=== PATIENT | female | born 1990 | race Caucasian/White ===

== ENCOUNTER 2017-01-27 15:45 | Emergency (ER) | payer OTHER ==
--- NOTE | 2017-01-27 16:32 | EDPHY ---
H & P Stated Complaint: bulging around umbilicus Time Seen by Provider: 01/27/17 16:00 HPI/ROS: This patient was never seen by myself in the emergency department. Source: Patient Exam Limitations: No limitations - Personal History LMP (Females 10-55): 8-14 Days Ago Current Tetanus/Diphtheria Vaccine: Yes Current Tetanus Diphtheria and Acellular Pertussis (TDAP): Yes - Medical/Surgical History Hx Asthma: No Hx Chronic Respiratory Disease: No Hx Diabetes: No Hx Cardiac Disease: No Hx Renal Disease: No Hx Cirrhosis: No Hx Alcoholism: No Hx HIV/AIDS: No Hx Splenectomy or Spleen Trauma: No - Social History Smoking Status: Never smoked Constitutional: Initial Vital Signs Temperature (C) 37.1 C 01/27/17 15:51 Heart Rate 100 01/27/17 15:51 Respiratory Rate 16 01/27/17 15:51 Blood Pressure 141/87 H 01/27/17 15:51 O2 Sat (%) 98 01/27/17 15:51 O2 Delivery Mode Room Air Allergies/Adverse Reactions: cephalexin [From Keflex] Allergy (Verified 01/27/17 15:54) Departure - Departure Disposition: Home, Routine, Self-Care Clinical Impression: Umbilical hernia Condition: Good Instructions: Umbilical Hernia (ED) Additional Instructions: Heating pad to your abdomen as needed for comfort. Follow up with the surgeon. Call to schedule your appointment. Return to the ED for increased pain, increased size, any other questions or concerns. Referrals: Jesus Villarreal MD [Medical Doctor] - As per Instructions (General surgeon)
--- NOTE | 2017-01-27 16:44 | EDPHY ---
H & P Stated Complaint: bulging around umbilicus Time Seen by Provider: 01/27/17 16:00 HPI/ROS: CHIEF COMPLAINT: abdominal bulge HISTORY OF PRESENT ILLNESS: 26-year-old female presents emergency department with her mother complaining of intermittent periumbilical abdominal pain with a intermittent bulge x2 years. Patient states 2 weeks ago she was doing a lot of heavy lifting and has had an increased bulge with increased pain. She has noticed a discoloration, mildly purple. Patient reports it feels better after it is pushed on. She denies nausea, vomiting or diarrhea. She states she feels mildly bloated as she feels constipated and has not had a bowel movement for a few days. No fevers or chills. No urinary symptoms. Patient reports she has a known umbilical hernia as a baby that "went away". REVIEW OF SYSTEMS: A comprehensive 10 point review of systems is otherwise negative aside from elements mentioned in the history of present illness. - Personal History LMP (Females 10-55): 8-14 Days Ago Current Tetanus/Diphtheria Vaccine: Yes Current Tetanus Diphtheria and Acellular Pertussis (TDAP): Yes - Medical/Surgical History Hx Asthma: No Hx Chronic Respiratory Disease: No Hx Diabetes: No Hx Cardiac Disease: No Hx Renal Disease: No Hx Cirrhosis: No Hx Alcoholism: No Hx HIV/AIDS: No Hx Splenectomy or Spleen Trauma: No - Social History Smoking Status: Never smoked - Physical Exam Exam: Physical Exam Gen: Alert and Oriented, NAD HEENT: PERRL, moist mucous membranes NECK: no meningismus CV: regular rate and regular rhythm PULM: CTAB, no wheezes ABDOMEN: soft, non tender to palpation, small 3 mm umbilical mass that is reducible. Slightly purple in color, mildly tender with reduction, BS present BACK: No CVA tenderness NEURO: Neurologically grossly intact EXTREMITIES: normal appearing SKIN: no rash or break in skin on exposed skin PSYCH: answers questions appropriately. Constitutional: Initial Vital Signs Temperature (C) 37.1 C 01/27/17 15:51 Heart Rate 100 01/27/17 15:51 Respiratory Rate 16 01/27/17 15:51 Blood Pressure 141/87 H 01/27/17 15:51 O2 Sat (%) 98 01/27/17 15:51 O2 Delivery Mode Room Air Allergies/Adverse Reactions: cephalexin [From Keflex] Allergy (Verified 01/27/17 15:54) Medical Decision Making ED Course/Re-evaluation: 26-year-old female presents with a a reducible umbilical hernia. No evidence of incarcerated hernia. Patient will be given General surgery for follow-up. She is given return precautions for any worsening symptoms or concerns. Patient is comfortable with this plan. Differential Diagnosis: Diagnosis considered but not limited to umbilical hernia, incarcerated hernia, abscess Departure - Departure Disposition: Home, Routine, Self-Care Clinical Impression: Umbilical hernia Qualifiers: Obstruction and gangrene presence: without obstruction or gangrene Qualified Code(s): K42.9 - Umbilical hernia without obstruction or gangrene Condition: Good Instructions: Umbilical Hernia (ED) Additional Instructions: Heating pad to your abdomen as needed for comfort. Follow up with the surgeon. Call to schedule your appointment. Return to the ED for increased pain, increased size, any other questions or concerns. Referrals: Jesus Villarreal MD [Medical Doctor] - As per Instructions (General surgeon)
[2017-01-27 16:54] VITALS: RESP 20
[2017-01-27 16:57] VITALS: BP 127/86; PULSE 72; TEMP 98.8; O2SAT 97
== END 2017-01-27 16:55 | disposition home or self-care (01) ==
DX: K42.9 Umbilical hernia without obstruction or gangrene (principal)

== ENCOUNTER 2017-07-02 19:30 | Observation (INO) | payer OTHER ==
[2017-07-02] MEDS ORDERED: NS 1,000 ML IV ONE (19:43)
[2017-07-02] MEDS ORDERED: ONDANSETRON 4 MG/2 ML VIAL IVP ONE (19:43)
[2017-07-02] MEDS ORDERED: KETOROLAC 15 MG/1 ML SDV IVP ONE ×2 (19:56→20:50)
[2017-07-02 19:57] LABS: PLATELET COUNT 280 10^3/uL (150-400)
[2017-07-02] MEDS ORDERED: IOPAMIDOL (ISOVUE-300) 100 ML BTL ONE (20:00)
--- NOTE | 2017-07-02 20:03 | EDPHY ---
H & P Stated Complaint: 7/10 lower abd pain with N/V since Friday night. Time Seen by Provider: 07/02/17 19:43 HPI/ROS: This patient reports abdominal pain and vomiting. She explains that 48 hr prior to arrival she developed mid belly pain that was achy in nature associated with nausea. She thought she had the stomach flu but over the last 24 hr the pain migrated to the right lower belly may came sharp in nature, 7/10 intensity. She has never had this abdominal pain before. The pain worsens with bumps on the road while driving in the car. She took ibuprofen 400 mg at 3:00 p.m. with partial relief. No other exacerbating factors. She is uncertain if she has had fevers because she has been taking ibuprofen quite regularly every 6-8 hours since the onset of the pain. ROS: Constitutional: no significant fatigue HEENT: No URI symptoms currently. Pulmonary: Had bronchitis last week improved with an inhaler. No significant coughing currently. No shortness of breath. Cardiovascular: She does feel mildly lightheaded while on her feet today. No chest pain. GI: She reports her last meal was bananas and juice at 2:00 p.m. today. Her nausea has currently resolved. She reports feeling slightly bloated. She feels slightly constipated but did have a normal bowel movement today. : Last menstrual period was normal timing last week. No dysuria or frequency. No flank pain. No vaginal discharge. Endocrine: No complaints Derm: No complaints Completely symptoms otherwise negative. Source: Patient Exam Limitations: No limitations - Personal History LMP (Females 10-55): 1-7 Days Ago Current Tetanus Diphtheria and Acellular Pertussis (TDAP): Yes - Medical/Surgical History Hx Asthma: No Hx Chronic Respiratory Disease: No Hx Diabetes: No Hx Cardiac Disease: No Hx Renal Disease: No Hx Cirrhosis: No Hx Alcoholism: No Hx HIV/AIDS: No Hx Splenectomy or Spleen Trauma: No Other PMH: R ovarian cyst, umbilical hernia - Family History Significant Family History: No pertinent family hx - Social History Smoking Status: Never smoked Alcohol Use: Occasionally Drug Use: None - Physical Exam Exam: Pleasant 27-year-old female pulse of 109. Other vitals are normal General Appearance: Alert, no distress. Eyes: Pupils equal and round no pallor or injection. ENT, Mouth: Mucous membranes moist. Respiratory: There are no retractions, lungs are clear to auscultation. Cardiovascular: Tachycardia with no murmur gallop or rub Gastrointestinal: Normoactive, soft, positive right lower quadrant rebound tenderness. Positive Rovsing's. Small reducible umbilical hernia no upper belly tenderness. No organomegaly. Back: No CVA tenderness Neurological: GCS 15 Skin: Warm and dry, no rashes. Musculoskeletal: Neck is supple nontender. Extremities are symmetrical, full range of motion. Psychiatric: Mood and affect normal DIFFERENTIAL DIAGNOSIS: After history and physical exam differential diagnosis was considered forappendicitis, diverticulitis, mesenteric adenitis, ovarian cyst, ovarian torsion, tubo-ovarian abscess, UTI, constipation Constitutional: Initial Vital Signs Temperature (C) 37 C 07/02/17 19:41 Heart Rate 109 H 07/02/17 19:41 Respiratory Rate 18 07/02/17 19:41 Blood Pressure 137/97 H 07/02/17 19:41 O2 Sat (%) 92 07/02/17 19:41 O2 Delivery Mode Room Air Allergies/Adverse Reactions: cephalexin [From Keflex] Allergy (Verified 07/02/17 19:40) Home Medications: Medication Instructions Recorded Control Pill 07/02/17 Hydrocodone/APAP 5/325 [[place] 1 tab PO Q4HRS PRN #20 tab 07/04/17 5/325 (*)] Ibuprofen [Motrin (*)] 600 mg PO Q6 PRN #30 tab 07/04/17 Ondansetron Odt [Zofran Odt 4 mg 4 mg PO ONCE #10 tab 07/04/17 (*)] Sennosides/Docusate Sodium 1 tab PO BID #30 tab 07/04/17 [Senokot-S] Medical Decision Making - Diagnostics Imaging Results: CT abdomen pelvis I discussed with Dr. De Martinez-radiologist to is unable to visualize the appendix-bladder is very full. No obvious inflammatory change in the right lower quadrant. Small ovarian cysts bilaterally are present. I also reviewed the CT myself. Imaging: Discussed imaging studies w/ order desk caller Radiologist ED Course/Re-evaluation: IV normal saline bolus Toradol IV without improvement in her pain. On repeat examination at 9:45 p.m. the patient still has significant right lower quadrant tenderness with mild rebound. Morphine 4 mg IV Patient kept NPO Discussed the case with our on-call surgeon-Dr. Hand who recommends sending the patient over to preop so that he can exam her. He also reviewed the CT Discussion: Patient here with right lower quadrant pain tenderness leukocytosis CT did not visualize her appendix. We ruled out , rule out UTI. Given her ongoing pain and tenderness concerned about potential early appendicitis since patient and thinks that she warrants surgical consult impossible object admission. Other possibilities for her symptoms include mesenteric adenitis or enteritis, although without any loose stools or diarrhea enteritis seems unlikely. - Data Points Laboratory Results: Laboratory Results 07/02/17 07:50 07/02/17 07:50 Medications Given: Discontinued Medications Hydrocodone Bitart/Acetaminophen ([place] 5/325) 1 tab PO Q4HRS PRN PRN Reason: Pain, Moderate Able to Take PO Stop: 07/13/17 07:25 Last Admin: 07/04/17 11:16 Dose: 1 tab Bupivacaine HCl (Sensorcaine 0.25% Sdv) Confirm Administered Dose 30 ml .ROUTE .STK-MED ONE Stop: 07/03/17 04:36 Last Admin: 07/03/17 06:02 Dose: 30 ml Bupivacaine HCl (Sensorcaine 0.25% Sdv) Confirm Administered Dose 30 ml .ROUTE .STK-MED ONE Stop: 07/03/17 04:36 Last Admin: 07/03/17 06:02 Dose: Not Given Fentanyl (Sublimaze) 25 - 100 mcg IVP Q5M PRN PRN Reason: PACU, IMMEDIATE Pain control Stop: 07/03/17 06:02 Last Admin: 07/03/17 07:07 Dose: 50 mcg Hydromorphone HCl (Dilaudid) 0.2 mg IVP Q2HRS PRN PRN Reason: Pain, Severe Unable to Take PO Stop: 07/13/17 02:42 Last Admin: 07/03/17 12:21 Dose: 0.2 mg Sodium Chloride (Ns) 1,000 mls @ 0 mls/hr IV EDNOW ONE; Wide Open PRN Reason: Protocol Stop: 07/02/17 19:44 Last Admin: 07/02/17 19:55 Dose: 1,000 mls Lactated Ringer's (Lr) 1,000 mls @ 0 mls/hr IV ONCE ONE PRN Reason: KVO Stop: 07/02/17 23:03 Last Admin: 07/03/17 05:02 Dose: Not Given Lactated Ringer's (Lr) 1,000 mls @ 150 mls/hr IV CONT LEILANI Stop: 07/04/17 00:29 Last Admin: 07/03/17 01:40 Dose: 1,000 mls Piperacillin/Tazobactam/Dextrose (Zosyn 3.375 Gm (Premix)) 50 mls @ 100 mls/hr IV ONCE ONE PRN Reason: Protocol Stop: 07/03/17 04:58 Last Admin: 07/03/17 05:12 Dose: 50 mls Piperacillin/Tazobactam/Dextrose (Zosyn 3.375 Gm (Premix)) 50 mls @ 100 mls/hr IV Q6HRS LEILANI PRN Reason: Protocol Stop: 07/04/17 00:29 Last Admin: 07/04/17 00:15 Dose: 50 mls Ibuprofen (Motrin) 600 mg PO Q6 PRN PRN Reason: Pain, Mild Able to Take PO Stop: 12/30/17 14:31 Last Admin: 07/04/17 11:15 Dose: 600 mg Ketorolac Tromethamine (Toradol) 15 mg IVP EDNOW ONE Stop: 07/02/17 19:57 Last Admin: 07/02/17 20:00 Dose: 15 mg Ketorolac Tromethamine (Toradol) 15 mg IVP EDNOW ONE Stop: 07/02/17 20:51 Last Admin: 07/02/17 20:55 Dose: 15 mg Morphine Sulfate (Morphine) 4 mg IVP EDNOW ONE Stop: 07/02/17 21:47 Last Admin: 07/02/17 21:53 Dose: 4 mg Ondansetron HCl (Zofran) 4 mg IVP EDNOW ONE Stop: 07/02/17 19:44 Last Admin: 07/02/17 19:56 Dose: Not Given Ondansetron HCl (Zofran) 4 mg IVP Q4HRS PRN PRN Reason: Nausea/Vomiting, Can't Take PO Stop: 12/30/17 00:43 Last Admin: 07/04/17 00:15 Dose: 4 mg Ondansetron HCl (Zofran Odt) 4 mg PO ONCE ONE Stop: 07/04/17 07:52 Last Admin: 07/04/17 11:19 Dose: 4 mg Promethazine HCl (Phenergan) 6.25 mg IVP Q6HRS PRN PRN Reason: Nausea/Vomiting, Can't Take PO Stop: 12/30/17 00:43 Last Admin: 07/03/17 08:35 Dose: 6.25 mg Senna/Docusate Sodium (Senokot-S) 1 tab PO BID LEILANI Stop: 12/30/17 08:59 Last Admin: 07/04/17 11:16 Dose: 1 tab Departure - Departure Disposition: [facility] Inpatient Acute Clinical Impression: Right lower quadrant abdominal pain Leukocytosis Qualifiers: Leukocytosis type: unspecified Qualified Code(s): D72.829 - Elevated white blood cell count, unspecified Condition: Good
[2017-07-02] MEDS ORDERED: KETOROLAC 15 MG/1 ML SDV ONE (20:51)
[2017-07-02] MEDS ORDERED: LR 1,000 ML IV ONE (23:02)
--- NOTE | 2017-07-03 00:02 | PDANEPAE ---
ANE Past Medical History - Cardiovascular History Hx Hypertension: No Hx Arrhythmias: No - Pulmonary History Hx Asthma/Reactive Airway Disease: Yes Hx Oxygen in Use at Home: No Hx Sleep Apnea: No - Endocrine History Hx Diabetes: No ANE Review of Systems Review of systems is: negative Review of Systems: - Exercise capacity METS (RN): 4 METS ANE Patient History - Allergies Allergies/Adverse Reactions: cephalexin [From Keflex] Allergy (Verified 07/02/17 19:40) - Home Medications Home Medications: Control Pill 07/02/17 [Last Taken Unknown] Ibuprofen [Advil] 200 mg PO 07/02/17 [Last Taken 07/02/17 15:00] - NPO status NPO Since - Liquids (Date): 07/02/17 NPO Since - Liquids (Time): 18:00 NPO Since - Solids (Date): 07/02/17 NPO Since - Solids (Time): 14:00 - Smoking Hx Smoking Status: Never smoked - Alcohol Use Alcohol Use: Occasionally ANE Labs/Vital Signs - Labs Result Diagrams: 07/02/17 07:50 07/02/17 07:50 - Vital Signs Blood Pressure: 129/87 Heart Rate: 114 Respiratory Rate: 18 O2 Sat (%): 98 Height: 170.18 cm Weight: 54.431 kg ANE Physical Exam - Airway Neck exam: FROM Mallampati Score: Class 2 - Pulmonary Pulmonary: clear to auscultation - Cardiovascular Cardiovascular: regular rate and rhythym - ASA Status ASA Status: I, E ANE Anesthesia Plan Anesthesia Plan: general endotracheal anesthesia
[2017-07-03] MEDS ORDERED: LR 1,000 ML IV SCH (00:30)
--- NOTE | 2017-07-03 00:43 | PDCONSULT ---
Manager [employer]ostatistics Note: #[id number] Full Surgical Consult Dictated S MD Yazan, FACS
[2017-07-03] MEDS ORDERED: PROMETHAZINE HCL 25 MG/ML INJ IVP PRN ×2 (00:44→05:02)
--- NOTE | 2017-07-03 01:25 | GCON ---
[f rep st] CONSULTATION ADMISSION NOTE/CONSULT DATE OF CONSULTATION: 07/02/2017 REFERRING PHYSICIAN: Garfield Ferrer MD CHIEF COMPLAINT: Abdominal pain. HISTORY OF PRESENT ILLNESS: The patient is a 27-year-old female, who presented to [facility] in [place] for evaluation of abdominal pain. She was seen and assessed by Dr. Garfield Smith son and referred to [facility] for a possible appendicitis. The patient reports the pain to have started 2 days prior when she awoke. She went to work. The leonor n became worse. After initially starting in the upper mid abdomen, moved into her lower abdomen, bot h right and left sides but worse on the right. The patient developed nausea and had 1 episode of javan sis on the first day of her symptoms. Took ibuprofen to treat her symptoms. On the day of admission , the patient reported the pain to persist and be much the same associated with what she described as a crampy pain similar to menstrual cramps. Although the pain is persistent, she feels better than s he did on the first day of her symptoms. The patient has not been vomiting today. Denies any diarrh ea. She last ate approximately 9 hours prior and is currently hungry. She denies any fever. The patient was treated 1 week prior for presumed bronchitis with an inhaler, which she used for 2 da ys and then discontinued because it gave her a headache. She was seen 3 months ago at [facility] for spontaneous bleeding from her umbilicus and was treated with antibiotics after a CAT scan was performed. At that time, she was noted to have ova placido cysts. Had no prior history or knowledge of them. She takes no. MEDICATIONS: Oral contraceptives, ibuprofen and a bronchodilator (? Flovent). ALLERGIES: Cephalexin. HABITS: She is a nonsmoker. Denies significant alcohol use. PAST SURGICAL HISTORY: No prior abdominal surgeries. SOCIAL HISTORY: The patient is accompanied by her significant other and her mother. FAMILY HISTORY: Noncontributory. REVIEW OF SYSTEMS: The patient reports a chronic cough for 2 months that resolved last week after st arting inhaler. She had no sputum, hemoptysis. Denies chest pain, shortness of breath. She has had no hematemesis, melena, hematochezia, diarrhea or anorexia. Last menstrual period was 1 week prior and was described as normal. The patient denies history of prior abdominal pain of this intensity. She did have spontaneous bleeding from her umbilicus approximately 3 months ago, which resolved after a course of antibiotics. Records of this episode are not available currently. PHYSICAL EXAMINATION: VITAL SIGNS: Blood pressure 129/87. Heart rate 114. Respiratory rate 18. T emperature is 36.8. GENERAL: Patient is a pleasant, slender young woman who appears in mild distres s. NECK: Supple without adenopathy. HEENT: There are no scleral icterus. LUNGS: Clear to auscul tation. HEART: Regular in rate and rhythm without murmurs. ABDOMEN: Scaphoid. Bowel sounds are n ormoactive and present. The patient has a soft upper epigastric bruit. She has tenderness to percus sergei in both the right and left lower quadrant as well as in the suprapubic midline. She has diffuse mild tenderness to palpation. No guarding or rebound. Rovsing sign is negative. There is no back, flank or CVA tenderness. The patient has a discoloration at the base of her umbilicus in the skin t hat appears postinflammatory. There is a small non-incarcerated umbilical hernia present slightly ab ove this. There is no focal tenderness at McBurney point. There is no inguinal mass, adenopathy or hernia. PELVIC: Not performed at this time. EXTREMITIES: The patient has a negative psoas and neg ative obturator sign. IMAGING: The patient's CT scan was reviewed and shows a dilated bladder and bilateral ovarian cysts. Appendix was not visualized. There are several loops of small bowel that contain fluid which is no nspecific. There is no free air. No pathologic calcifications. A small umbilical hernia is confirm ed. LABORATORY STUDIES: WBC is 14.3, hemoglobin 14.9, hematocrit 44.6, platelets are 280,000. 83% neutr ophils on differential. Sodium is 139, potassium 4.0, chloride 98, bicarb 23, BUN 7, creatinine 0.7, glucose 108. Calcium is 9.8. Beta HCG is negative. Urinalysis is negative with a specific gravity of less than 1.005. IMPRESSION: 1. Abdominal pain of unclear etiology. Certainly, appendicitis is in the differential. Given the h istory and clinical exam as well as negative appendix, the odds of appendicitis are quite low. She d oes have leukocytosis, which is worrisome for a sign of infection. 2. Bilateral ovarian cysts. Possible contributing etiology to the patient's abdominal pain though t here is no secondary evidence of cyst rupture or bleeding based on CT. 3. History of spontaneous bleeding from the umbilicus, suspicious for patent urachus. No evidence o f urachal cyst on CT. 4. Recent bronchitis. Treated with inhaler. RECOMMENDATIONS: I discussed the findings with the patient, her boyfriend and her mother, and the op tions of management including immediate laparoscopic or open appendectomy versus additional testing w ith abdominal and pelvic ultrasound and COMMUNITY RECREATION PROGRAMMER consultation. As the patient's symptoms have improved si nce yesterday, I believe it is safe to take the time to obtain additional imaging and get a second op inion. I discussed the case with Dr. Chasity De La Garza, who will consult on her care. The patient will b e admitted for observation, serial exams and be kept n.p.o. for the time being. Intravenous fluids t o be administered. Serial exams to be performed. /[id number]/MODL
[2017-07-03] MEDS ORDERED: ONDANSETRON 4 MG/2 ML VIAL ONE ×3 (01:32→07:06)
[2017-07-03] MEDS: ONDANSETRON 4 MG/2 ML VIAL IVP PRN ×4 (01:40→16:31)
--- NOTE | 2017-07-03 02:40 | SOAPPROG ---
Downtime Inpatient MD Late Entry SOAP Note: Kelly feels about the same with crampy lower abd pain. She reports a CALI with morphine and required zofran for nausea. She denies emesis. Her abdominal exam reveals normal bowel sounds, she has diffuse mild percussion tenderness and tenderness in both lower quadrants more in the LLQ than RLQ. There is no guarding or rebound. repeat cbc, pelvic and abdominal ultrasound are pending. Imp: abdominal pain, clinically not likely appendicitis bilateral ovarian cysts on CT ? ruptured ovarian cyst-OPERATIONS ACCOUNTANT consult pending prior drainage from umbilicus clinically suspicious for patent urachus Rec: repeat cbc, pelvic and abdominal ultrasound continue NPO for now/serial exam OPERATIONS ACCOUNTANT consult-discussed with Dr. Frederic Hand MD, FACS
[2017-07-03 02:47] LABS: PLATELET COUNT 222 10^3/uL (150-400)
[2017-07-03] MEDS ORDERED: PIPERACILLIN/TAZO 3.375 GM/DEX 50 ML IV ONE (04:29)
[2017-07-03] MEDS ORDERED: BUPIVACAINE 0.25% 30 ML SDV ONE ×2 (04:35)
[2017-07-03] MEDS ORDERED: ALBUTEROL 3 ML DEYVIAL IH PRN (05:02)
[2017-07-03] MEDS ORDERED: NALOXONE HCL 0.4 MG/ML INJ IVP PRN (05:02)
[2017-07-03] MEDS ORDERED: ONDANSETRON 4 MG/2 ML VIAL IVP PRN (05:02)
[2017-07-03] MEDS ORDERED: fentaNYL 100 MCG/2 ML INJ IVP PRN (05:02)
[2017-07-03] MEDS ORDERED: HYDROmorphONE/DILAUDID 1 MG/ML INJ IVP PRN (05:02)
--- NOTE | 2017-07-03 05:04 | PDANEPAE ---
ANE History of Present Illness Lap Appendectomy ANE Past Medical History - Pulmonary History Hx Oxygen in Use at Home: No Hx Sleep Apnea: No - Endocrine History Hx Diabetes: No ANE Review of Systems Review of Systems: ANE Patient History - Allergies Allergies/Adverse Reactions: cephalexin [From Keflex] Allergy (Verified 07/02/17 19:40) - Home Medications Home Medications: Control Pill 07/02/17 [Last Taken Unknown] Ibuprofen [Advil] 200 mg PO 07/02/17 [Last Taken 07/02/17 15:00] - NPO status NPO Since - Liquids (Date): 07/02/17 NPO Since - Liquids (Time): 18:00 NPO Since - Solids (Date): 07/02/17 NPO Since - Solids (Time): 14:00 - Smoking Hx Smoking Status: Never smoked - Alcohol Use Alcohol Use: Occasionally ANE Labs/Vital Signs - Labs Result Diagrams: 07/03/17 02:35 07/02/17 07:50 - Vital Signs Blood Pressure: 112/74 Heart Rate: 104 Respiratory Rate: 16 O2 Sat (%): 95 Height: 170.18 cm Weight: 54.431 kg ANE Physical Exam - Airway Neck exam: FROM Mallampati Score: Class 2 Mouth exam: normal dental/mouth exam - Pulmonary Pulmonary: clear to auscultation - Cardiovascular Cardiovascular: regular rate and rhythym - ASA Status ASA Status: I, E ANE Anesthesia Plan Anesthesia Plan: general endotracheal anesthesia
[2017-07-03] MEDS ORDERED: fentaNYL 100 MCG/2 ML INJ ONE ×2 (05:12→07:01)
[2017-07-03] MEDS ORDERED: LIDOCAINE 2% 5 ML SDV ONE (05:12)
[2017-07-03] MEDS ORDERED: PROPOFOL 200 MG/20 ML VIAL ONE ×2 (05:12→06:13)
[2017-07-03] MEDS ORDERED: ROCURONIUM 50 MG/5 ML VIAL ONE (05:13)
[2017-07-03] MEDS ORDERED: DEXAMETHASONE 4 MG/ML VIAL ONE ×2 (05:18)
[2017-07-03] MEDS ORDERED: RANITIDINE 50 MG/2 ML VIAL ONE (05:18)
[2017-07-03] MEDS ORDERED: SUGAMMADEX SODIUM 200 MG/2 ML VIAL IVP ONE (06:01)
--- NOTE | 2017-07-03 07:17 | POSTOPPROG ---
Post Op Note Date of Operation: 07/03/17 Surgeon: Micha Hand (, FACS) Anesthesiologist: Van Jo DO Anesthesia: GET(General Endotracheal) Pre-op Diagnosis: appendicitis + umbilical hernia Post-op Diagnosis: same + endometriosis Procedure: lap appendectomy/excision endometriosis umbilical/repair hernia Inf/Abcess present in the surg proc area at time of surgery?: Yes Depth: Organ Space Specimen(s): umbilical skin and hernia sac appendix
--- NOTE | 2017-07-03 07:39 | POSTANESTH ---
Post Anesthetic Evaluation Cardiovascular Status: Normal, Stable Respiratory Status: Normal, Stable Level of Consciousness/Mental Status: Can Participate in Eval Pain Control: Adequate, Prn Tx Ordered Nausea/Vomiting Control: Adequate, Prn Tx Ordered Complications Possibly Related to Anesthesia: None Noted
--- NOTE | 2017-07-03 08:02 | GOP ---
[f rep st] OPERATIVE REPORT DATE OF OPERATION: 07/03/2017 SURGEON: Micha Hand MD ANESTHESIOLOGIST: Van Jo D.O. PREOPERATIVE DIAGNOSIS: 1. Suspected appendicitis. 2. Umbilical hernia. 3. Bilateral ovarian cysts. POSTOPERATIVE DIAGNOSIS: 1. Acute appendicitis. 2. Endometriosis of the umbilicus. 3. Bilateral ovarian cysts and pelvic peritoneal endometriosis. 4. Umbilical hernia. PROCEDURE PERFORMED: 1. Laparoscopic appendectomy. 2. Excision of endometriosis including umbilical skin and umbilical hernia sac. 3. Umbilical hernia repair. FINDINGS: Black discoloration of the skin at the base of the umbilicus with history of prior bloody drainage. Subcutaneous infiltration with what appeared to be endometriosis. Permanent section pendi ng. A small umbilical hernia. Additional endometriosis identified in the left pelvic sidewall and l eft ovary. Bilateral ovarian cysts. ESTIMATED BLOOD LOSS: 10 cc. DESCRIPTION OF PROCEDURE: After informed consent was obtained, the patient was brought to the operat ing room and placed under general anesthesia. The abdomen was prepped and draped in usual fashion. Before proceeding, a time-out and identification of the patient was performed. The patient had an area of discoloration at the base of her umbilicus with irregular skin. This was infiltrated with 0.25% Marcaine and excised with a #15 scalpel blade, creating an approximately 8 mm defect at the base of the umbilicus. This tissue contained black dark nodular areas in the sub-dermi s and anterior fascia. There was an underlying umbilical hernia. All the involved tissue was excise d down to the fascial defect. The Veress needle was introduced into the peritoneal cavity via the um bilical hernial defect and a pneumoperitoneum was established with CO2 gas to a pressure of 15 mmHg. A 0-degree scope was introduced and the peritoneal cavity was visualized. An additional 5 mm port w as placed in the suprapubic position. This was used to introduce an atraumatic grasping forceps. Th e appendix was identified lying posterior to the right ovary and right salpinx. A 12 mm port was the n placed in the left lower quadrant under direct visualization. This allowed the appendix to be gras ped and dissected away from the surrounding structures. The mesoappendix was taken down with the Ibrahima gavi scalpel, and the appendix was from the cecum with a single firing of the TRIXIE stapler. The appendix was then retrieved through the left lower quadrant port site using an Endopouch. Hemo stasis appeared secure. The left lower quadrant fascial defect was repaired with a transfascial clos ure needle and 0 Vicryl suture. Inspection of the pelvis was performed. Both ovaries were visualize d, noted to have benign-appearing follicular cysts and there were 2 foci of endometriosis; one on the pelvic sidewall on the left near the salpinx and the other at the base of the ovary. These were not disturbed. The pneumoperitoneum was then evacuated. All ports were removed. The umbilical fascial defect was repaired with interrupted 0 Vicryl sutures. Subcutaneous tissues were approximated with 3-0 Monocryl suture and the skin was closed with 4-0 Monocryl suture in a subcuticular fashion. Topi lien Dermabond was applied. The patient was returned to the recovery room in satisfactory condition. Needle, sponge, and instrument counts were correct. COMPLICATIONS: None. /[id number]/MODL
[2017-07-03] MEDS: HYDROmorphONE/DILAUDID 1 MG/ML INJ IVP PRN ×2 (08:23→12:21)
[2017-07-03] MEDS: PIPERACILLIN/TAZO 3.375 GM/DEX 50 ML IV SCH ×2 (11:22→17:54)
[2017-07-03] MEDS: SENNOSIDES/DOCUSATE SODIUM TAB PO SCH ×2 (14:47→20:45)
[2017-07-03] MEDS: IBUPROFEN 600 MG TAB PO PRN ×2 (14:48→20:43)
[2017-07-03] MEDS: HYDROCODONE/APAP 5/325 TAB PO PRN (16:30)
[2017-07-04] MEDS: HYDROCODONE/APAP 5/325 TAB PO PRN ×2 (00:15→11:16)
[2017-07-04] MEDS: PIPERACILLIN/TAZO 3.375 GM/DEX 50 ML IV SCH (00:15)
[2017-07-04] MEDS: ONDANSETRON 4 MG/2 ML VIAL IVP PRN (00:15)
[2017-07-04] MEDS: IBUPROFEN 600 MG TAB PO PRN ×2 (05:05→11:15)
[2017-07-04 05:36] VITALS: O2SAT 96
[2017-07-04] MEDS ORDERED: ONDANSETRON DISINTEGRATING 4 MG TAB PO ONE (07:51)
--- NOTE | 2017-07-04 08:13 | PDDCSUM ---
Discharge Summary Discharge Summary: DOA:07/02/17 DOD: 07/04/17 Proedures: 07/03/17 lap appendectomy, excision of umbilical endometriosis, repair of umbilical hernia Course: Kelly presented to the [facility] late evening on the for abdominal pain and was transferred to [facility] for surgical consultation. Her CT abd was neg for appendicitis and she had an atypical history and exam. An abd ultrasond showed the appendix to be enlarged and her wbc remained elevated at 14K with a left shift. She had a history of spontaneous umbilical bleeding 3 months before and black discoloration of the inferior umbilical skin. She received Zosyn pre-operatively and was brought to the OR early on the and underwent lap appendectomy. The umbilical skin was excised at the base and had what appeared to be endometriosis in the skin and subcutaneous tissues. This was excised. An early appendicitis was confirmed and endometriosis was seen in the left ovary and paratubal peritoneum. Her umbilical hernia was repaired. Post op she received 3 additional doses of Zosyn and remained afebrile. She was advanced in her diet and discharged home on the with instructions in diet, activity and wound care. 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 DC medications: Warriormine 5mg #20 Ibuprofen 600 mg #30 Zofran 4mg #10 OCP resume FU my office one week for wound check Moon Hand MD, FACS
[2017-07-04 08:39] VITALS: BP 95/62; PULSE 66; RESP 20; TEMP 97.4
[2017-07-04] MEDS: SENNOSIDES/DOCUSATE SODIUM TAB PO SCH (11:16)
[2017-07-04] MEDS ORDERED: ONDANSETRON DISINTEGRATING 4 MG TAB ONE (11:18)
== END 2017-07-04 14:40 | disposition home or self-care (01) ==
LOC: CED 19:30 → F3E 22:28 → CEDHOLD 22:50 → FOB 07-03 00:30
PROVIDERS: ADMIT Surgery; ATTEND Surgery
PROC: 0JB80ZX Excision of Abdomen Subcutaneous Tissue and Fascia, Open Approach, Diagnostic (ICD-10-PCS; principal; 2017-07-02)
PROC: 0DTJ4ZZ Resection of Appendix, Percutaneous Endoscopic Approach (ICD-10-PCS; principal; 2017-07-02)
PROC: 0WQF0ZZ Repair Abdominal Wall, Open Approach (ICD-10-PCS; principal; 2017-07-02)
DX: K35.80 Unspecified acute appendicitis (principal); N80.8 Other endometriosis; N83.201 Unspecified ovarian cyst, right side; N83.202 Unspecified ovarian cyst, left side; N80.3 Endometriosis of pelvic peritoneum; K42.9 Umbilical hernia without obstruction or gangrene
CPT/HCPCS: 11402; 44970; 49585; 74177; 76705; 76856; 96361; 96374; 96375; 96376; 99285; G0378; 80048-PO; 81003-PO; 84703-PO; 85025-PO; J1100; J1170; J1885; J2405; J2543; J2550; J2704; J2780; J3010; Q9967

== ENCOUNTER 2017-07-08 09:45 | Emergency (ER) | payer OTHER ==
[2017-07-08 10:38] LABS: PLATELET COUNT 304 10^3/uL (150-400)
--- NOTE | 2017-07-08 10:38 | EDPHY ---
General - History Smoking Status: Never smoked Narrative: CHIEF COMPLAINT: Chest pain HISTORY OF PRESENT ILLNESS: Patient complains of chest pain. Chest pain started this morning. She awoke with moderate to severe retrosternal chest pain. She has had some mild shortness of breath, left leg pain and calf tenderness with cramping this started on Friday. This was 1 day after discharge home from this hospital for appendectomy. She said she has some ongoing left calf pain and cramping. She was seen by her surgeon this morning for postoperative check. She notified him of the chest pain complaint and he has ordered a CT scan of the chest to rule out PE. She presents for this. No vomiting, diarrhea constipation. Normal urination. REVIEW OF SYSTEMS: Ten systems reviewed and are negative unless otherwise noted in the HPI SPECIALISTS: Dr. Hand PAST MEDICAL HISTORY: Endometriosis, appendicitis PAST SURGICAL HISTORY: Appendectomy with endometriosis ablation SOCIAL HISTORY: Nonsmoker per FAMILY HISTORY: Noncontributory EXAMINATION General Appearance: Alert, no distress Head: normocephalic, atraumatic Eyes: Pupils equal and round, no conjunctival pallor or injection ENT, Mouth: Mucous membranes moist Neck: Normal inspection, supple, non-tender Respiratory: Lungs are clear to auscultation. No wheezing, rhonchi or crackles Cardiovascular: Regular rate and rhythm. No murmur Gastrointestinal: Abdomen is soft and nontender. Surgical incisions are clean , dry and intact and healing appropriately Neurological: A&O, nonfocal, normal gait Skin: Warm and dry, no rash. Surgical incisions as above. No cellulitis or abscess. Extremities: Nontender, no pedal edema. No edema of the left lower extremity. No erythema of the left lower extremity. No palpable cord of the left lower extremity. Negative pain with passive dorsiflexion of the left ankle. No evidence of DVT by examination Psychiatric: Mood and affect normal DIFFERENTIAL DIAGNOSES: Including but not limited to PE, pneumonia, bronchitis, pneumonitis, pleurisy, DVT, chest pain NOS MDM: 10:34 a.m. Chest pain postoperative appendectomy. The patient had a complicated appendectomy with endometriosis present as well. She has had chest pain that started this morning. She saw her surgeon Dr. Hand this morning. He ordered a CT scan of the chest to rule out PE. The patient presents to the emergency department for this and for further workup. We had a very lengthy discussion regarding the nature of pulmonary embolism, postsurgical chest pain on oral contraceptive pills. The mother and patient at this time are discussing whether they want to proceed with a D-dimer prior to the CT scan. I had a very lengthy discussion regarding this as well, the likely positive D-dimer, the lack of specificity given the recent surgery and the need to proceed with CT scan of the chest at this time. While I have a low clinical suspicion of clinically significant PE, I do feel it is a reasonable test at this time given her history, OCP use and recent surgery. At this time the patient mother would like to discuss the D-dimer versus proceeding straight to CT scan. She is in no acute distress. EKG will be obtained, laboratory studies be obtained. 10:40 a.m. Patient has decided she would like to try the D-dimer test. I discussed the risks, benefits and alternatives. I have discussed the lack of specificity and poor sensitivity given her scenario but she would like to proceed. I will continue with workup and re-evaluate. 11:20 a.m. D-dimer positive. I have re-evaluated the patient at this time. I discussed that a CT scan to rule out PE is warranted at this time. She and her mother would like to discuss further before proceeding 12:05 p.m. Patient re-evaluated. She still does not want to proceed with CT scan of the chest. We discussed risks, benefits and alternatives. She and her mother still do not want a CT scan due to the risk of radiation. They are asking for ultrasound the left lower extremity. I do feel this is reasonable and this has been ordered. I have also ordered Toradol for her pain. 12:50 p.m. Notified by radiologist Dr. Reyes. DVT study is negative. 1:00 p.m. Patient re-evaluated. She says her chest pain is significantly improved with the Toradol that was administered. Vital signs remained stable with heart rate of 66, oxygenation 99% on room air. No tachypnea and no distress. We had further discussion regarding CT scan of the chest to rule out PE. She continues to decline this. We discussed risks, benefits and alternatives. She is willing to assume the risk. Additionally I have a low clinical suspicion for PE but is still recommend CT angiography. She would like to be discharged home. I do feel she is stable to do so. We discussed ED precautions for any worsening chest pain, shortness of breath. She will follow up with her primary care physician and her general surgeon. I have discussed this with Dr. Hand as well. SUPERVISION: Patient was independently examined, but I discussed the case with my secondary supervising physician Dr. Ballard (Chriss Echols) The patient was evaluated and managed by the physician training and development assistant. I have reviewed this chart and I agree with the findings and plan of care as documented , as indicated by my signature. I am the secondary supervising physician. 12 lead EKG is interpreted in Trace master View by emergency department physician. (Mercedes Ballard) - Diagnostics Imaging Results: Imaging Impressions Extremity Venous Study 07/08/17 12:04 Impression: There is no sonographic evidence of deep or superficial vein thrombosis in the left lower extremity. Findings were discussed with Chriss Echols PA-C at 12:48, on 07/08/2017. - Objective Vital Signs: Initial Vital Signs Temperature (C) 37 C 07/08/17 09:49 Heart Rate 92 07/08/17 09:49 Respiratory Rate 16 07/08/17 09:49 Blood Pressure 123/95 H 07/08/17 09:49 O2 Sat (%) 97 07/08/17 09:49 O2 Delivery Mode Room Air Allergies/Adverse Reactions: cephalexin [From Keflex] Allergy (Verified 07/08/17 09:48) Home Medications: Medication Instructions Recorded Control Pill 07/02/17 Hydrocodone/APAP 5/325 [[place] 1 tab PO Q4HRS PRN #20 tab 07/04/17 5/325 (*)] Ibuprofen [Motrin (*)] 600 mg PO Q6 PRN #30 tab 07/04/17 Ondansetron Odt [Zofran Odt 4 mg 4 mg PO ONCE #10 tab 07/04/17 (*)] Sennosides/Docusate Sodium 1 tab PO BID #30 tab 07/04/17 [Senokot-S] Laboratory Results: Laboratory Results 07/08/17 10:10 07/08/17 10:10 07/08/17 07/08/17 07/08/17 10:10 10:10 10:10 WBC 6.02 10^3/uL 10^3/uL (3.80-9.50) RBC 4.66 10^6/uL 10^6/uL (4.18-5.33) Hgb 14.4 g/dL g/dL (12.6-16.3) Hct 42.3 % % (38.0-47.0) MCV 90.8 fL fL (81.5-99.8) MCH 30.9 pg pg (27.9-34.1) MCHC 34.0 g/dL g/dL (32.4-36.7) RDW 12.7 % % (11.5-15.2) Plt Count 304 10^3/uL 10^3/uL (150-400) MPV 9.4 fL fL (8.7-11.7) Neut % (Auto) 55.5 % % (39.3-74.2) Lymph % (Auto) 34.6 % % (15.0-45.0) [place] % (Auto) 7.0 % % (4.5-13.0) Eos % (Auto) 2.2 % % (0.6-7.6) Baso % (Auto) 0.5 % % (0.3-1.7) Nucleat RBC Rel Count 0.0 % % (0.0-0.2) Absolute Neuts (auto) 3.35 10^3/uL 10^3/uL (1.70-6.50) Absolute Lymphs (auto) 2.08 10^3/uL 10^3/uL (1.00-3.00) Absolute Monos (auto) 0.42 10^3/uL 10^3/uL (0.30-0.80) Absolute Eos (auto) 0.13 10^3/uL 10^3/uL (0.03-0.40) Absolute Basos (auto) 0.03 10^3/uL 10^3/uL (0.02-0.10) Absolute Nucleated RBC 0.00 10^3/uL 10^3/uL (0-0.01) Immature Gran % 0.2 % % (0.0-1.1) Immature Gran # 0.01 10^3/uL 10^3/uL (0.00-0.10) D-Dimer 0.54 ug/mLFEU H ug/mLFEU (0.00-0.50) Sodium 141 mEq/L mEq/L (135-145) Potassium 4.4 mEq/L mEq/L (3.5-5.2) Chloride 104 mEq/L mEq/L (97-110) Carbon Dioxide 22 mEq/l mEq/l (22-31) Anion Gap 15 mEq/L mEq/L (8-16) BUN 10 mg/dL mg/dL (7-23) Creatinine 0.7 mg/dL mg/dL (0.6-1.0) Estimated GFR > 60 Glucose 85 mg/dL mg/dL (70-100) Calcium 9.7 mg/dL mg/dL (8.5-10.4) Beta HCG, Quant < 2.39 mIU/mL mIU/mL (0.00-4.83) Medications Given: Discontinued Medications Ketorolac Tromethamine (Toradol) 30 mg IVP EDNOW ONE Stop: 07/08/17 12:05 Last Admin: 07/08/17 12:34 Dose: 30 mg Departure - Departure Disposition: Home, Routine, Self-Care Clinical Impression: Chest pain Qualifiers: Chest pain type: unspecified Qualified Code(s): R07.9 - Chest pain, unspecified Condition: Good Instructions: Chest Pain (ED) Additional Instructions: 1. Continue anti-inflammatories [id number] as discussed 2. Return to emergency department for change her mind regarding the CT angiography that was recommended 3. Follow up with primary care physician Referrals: NOLAN COCHRAN [Other] - As per Instructions Micha Hand MD [Medical Doctor] - As per Instructions
--- NOTE | 2017-07-08 10:50 | CPEKG ---
Heart Rate: 69 RR Interval: 870 P-R Interval: 168 QRSD Interval: 86 QT Interval: 372 QTC Interval: 399 P Mayfield: 64 QRS [place]field: 91 T Wave [place]: 52 EKG Severity - OTHERWISE NORMAL ECG - EKG Impression: SINUS RHYTHM EKG Impression: BORDERLINE RIGHT AXIS DEVIATION Electronically Signed By: Mercedes Ballard 08-Jul-2017 16:26:06
[2017-07-08] MEDS ORDERED: KETOROLAC 30 MG/1 ML SDV IVP ONE (12:04)
[2017-07-08 13:40] VITALS: BP 118/78; PULSE 71; RESP 16; TEMP 98.6; O2SAT 99
== END 2017-07-08 13:40 | disposition home or self-care (01) ==
DX: R07.9 Chest pain, unspecified (principal)
CPT/HCPCS: 96374; J1885